=== PATIENT | female | born 1980 | race Caucasian/White ===

== ENCOUNTER 2016-11-22 22:09 | Inpatient (IN) | payer MEDICAID ==
[~2016-11-22 22:09] MED LIST: DIVA500T35 PO; RISP2TAB76 PO; VITAD1000 PO
[2016-11-22] MEDS ORDERED: HALOPERIDOL 5 MG TABLET PO PRN (22:30)
[2016-11-22] MEDS ORDERED: DiphenhydrAMINE HCL 50 MG/ML VIAL IM ONE (22:30)
[2016-11-22] MEDS ORDERED: HALOPERIDOL LACTATE 5 MG/ML VIAL IM ONE (22:30)
[2016-11-22] MEDS ORDERED: LORazepam 2 MG/ML VIAL IM ONE (22:30)
[2016-11-22] MEDS ORDERED: LORazepam 2 MG TABLET PO PRN (22:30)
[2016-11-22] MEDS ORDERED: ZOLPIDEM TARTRATE 10 MG TABLET PO PRN (22:30)
[2016-11-23] MEDS ORDERED: BENZOCAINE/MENTHOL LOZENGE MM PRN (09:15)
[2016-11-23] MEDS ORDERED: MAGNESIUM HYDROXIDE SUSPENSION 30 ML UDCUP PO PRN (09:15)
[2016-11-23] MEDS ORDERED: MAG HYDROX/AL HYDROX/SIMETH ES 30 ML SUSPENSION UDCUP PO PRN (09:15)
[2016-11-23] MEDS ORDERED: LOPERAMIDE HCL 2 MG CAPSULE PO PRN (09:15)
[2016-11-23] MEDS ORDERED: ACETAMINOPHEN 325 MG TABLET PO PRN (09:15)
[2016-11-23] MEDS ORDERED: BACITRACIN 28.4 GM OINTMENT TP PRN (09:15)
[2016-11-23] MEDS ORDERED: PETROLATUM,WHITE 71 GM JELLY TP PRN (09:15)
[2016-11-23] MEDS ORDERED: CloNIDine HCL 0.1 MG TABLET PO PRN (09:15)
[2016-11-23] MEDS ORDERED: ONDANSETRON HCL 4 MG TABLET PO PRN (09:15)
[2016-11-23] MEDS ORDERED: ALBUTEROL SULFATE HFA 90 MCG/PUFF 8 GM INHALER IH PRN (09:15)
[2016-11-23] MEDS ORDERED: LORazepam 2 MG/ML VIAL ONE (10:35)
[2016-11-23] MEDS ORDERED: HALOPERIDOL LACTATE 5 MG/ML VIAL ONE (10:35)
[2016-11-23] MEDS ORDERED: DiphenhydrAMINE HCL 50 MG/ML VIAL ONE (10:35)
[2016-11-23] MEDS: DIVALPROEX SODIUM 500 MG DR TABLET PO SCH ×2 (12:12→16:23)
[2016-11-23] MEDS: IBUPROFEN 600 MG TABLET PO PRN (14:09)
[2016-11-23] MEDS: RisperiDONE 2 MG TABLET PO SCH (20:17)
[2016-11-24 01:27] VITALS: BP 120/67
[2016-11-24] MEDS: CHOLECALCIFEROL (VIT D3) 1,000 UNITS TABLET PO SCH (08:59)
[2016-11-24] MEDS: DIVALPROEX SODIUM 500 MG DR TABLET PO SCH ×2 (08:59→16:14)
[2016-11-24] MEDS: IBUPROFEN 600 MG TABLET PO PRN (10:18)
[2016-11-24 16:26] VITALS: BP 126/87
[2016-11-24] MEDS: RisperiDONE 2 MG TABLET PO SCH (20:16)
[2016-11-25 04:58] VITALS: BP 120/84
[2016-11-25 08:49] VITALS: BP 127/72
[2016-11-25 08:52] LABS: BASOPHILS # (AUTO) 0.02 K/uL (0.00-0.20); BASOPHILS % (AUTO) 0.3 % (0.0-2.0); EOSINOPHILS # (AUTO) 0.25 K/uL (0.00-0.70); EOSINOPHILS % (AUTO) 3.12 % (1.0-6.0); HEMATOCRIT 32.3 % (36-46); HEMOGLOBIN 10.6 g/dL (12.0-16.0); LYMPHOCYTES # (AUTO) 2.4 K/uL (1.0-4.8); LYMPHOCYTES % (AUTO) 29.8 % (22.0-44.0); MEAN CORPUSCULAR HEMOGLOBIN 28.5 pg (26.0-34.0); MEAN CORPUSCULAR HGB CONC 32.9 G/dL (31.0-37.0); MEAN CORPUSCULAR VOLUME 87 fL (80-100); MONOCYTES # (AUTO) 0.6 K/uL (0.1-1.0); NEUTROPHILS # (AUTO) 4.8 K/uL (1.8-7.7); NEUTROPHILS % (AUTO) 59.8 % (40.0-70.0); PLATELET COUNT (AUTO) 331 K/uL (150-450); RED BLOOD CELL COUNT(AUTO) 3.73 MIL/uL (4.00-5.20); RED CELL DISTRIBUTION WIDTH 15.3 % (11.5-14.5)
[2016-11-25 09:20] LABS: ALANINE AMINOTRANSFERASE 33 U/L (12-78); ALBUMIN 3.5 g/dL (3.4-5.0); ANION GAP 9 mmol/L (8-16); ASPARTATE AMINOTRANSFERASE 16 U/L (15-37); BILIRUBIN,TOTAL 0.2 mg/dL (0.1-1.0); CARBON DIOXIDE 27 mmol/L (22-29); CHLORIDE 104 mmol/L (98-107); CHOL/HDL RATIO 2.8 (3.9-5.7); CREATININE 0.59 mg/dL (0.60-1.30); GLOMERULAR FILTR. RATE CALC > 60 mL/min (>60); POTASSIUM 3.6 mmol/L (3.5-5.1); SODIUM SERUM 140 mmol/L (136-145); THYROID STIMULATING HORMONE 2.15 uIU/mL (0.36-3.74); TOTAL PROTEIN, SERUM 7.4 g/dL (6.4-8.2); UREA NITROGEN, BLOOD 7 mg/dL (7-18)
[2016-11-25] MEDS: DIVALPROEX SODIUM 500 MG DR TABLET PO SCH ×2 (09:37→16:28)
[2016-11-25] MEDS: CHOLECALCIFEROL (VIT D3) 1,000 UNITS TABLET PO SCH (09:37)
[2016-11-25 16:10] VITALS: BP 119/70
[2016-11-25] MEDS: RisperiDONE 2 MG TABLET PO SCH (21:01)
[2016-11-26 01:30] VITALS: BP 116/71
[2016-11-26] MEDS: IBUPROFEN 600 MG TABLET PO PRN ×2 (01:34→10:11)
[2016-11-26] MEDS: DIVALPROEX SODIUM 500 MG DR TABLET PO SCH (08:26)
[2016-11-26] MEDS: CHOLECALCIFEROL (VIT D3) 1,000 UNITS TABLET PO SCH (08:26)
[2016-11-26 09:42] VITALS: BP 119/72
[2016-11-26 10:08] VITALS: BP 122/70
== END 2016-11-26 12:46 | disposition home or self-care (01) | DRG 750 ==
LOC: B3A 22:26 → EDSTATUS 22:35 → B3A 11-23 00:27
PROVIDERS: ADMIT Psychiatry & Neurology Psychiatry; ATTEND Psychiatry & Neurology Psychiatry
DX: F25.9 Schizoaffective disorder, unspecified (principal); E55.9 Vitamin D deficiency, unspecified; G47.00 Insomnia, unspecified; K59.00 Constipation, unspecified; Z56.0 Unemployment, unspecified; Z79.899 Other long term (current) drug therapy; Z72.89 Other problems related to lifestyle; Z71.41 Alcohol abuse counseling and surveillance of alcoholic
CPT/HCPCS: 83036; 84439; 84443; J1200; J1630; J2060

== ENCOUNTER 2016-12-19 21:51 | Inpatient (IN) | payer MEDICAID ==
[~2016-12-19] VITALS: Ht 157.5 cm; Wt 82.1 kg
[2016-12-19] MEDS ORDERED: ZOLPIDEM TARTRATE 10 MG TABLET PO PRN (22:30)
[2016-12-19] MEDS ORDERED: HALOPERIDOL 5 MG TABLET PO PRN (22:30)
[2016-12-19 23:21] VITALS: BP 135/92
[2016-12-20 00:51] VITALS: BP 134/76
[2016-12-20] MEDS ORDERED: PNEUMOCOCCAL VACCINE POLYVALENT 0.5 ML VIAL [PPSV23] IM ONE (01:15)
[2016-12-20] MEDS: LORazepam 2 MG TABLET PO PRN (06:34)
[2016-12-20] MEDS ORDERED: BENZOCAINE/MENTHOL LOZENGE MM PRN (08:15)
[2016-12-20] MEDS ORDERED: MAGNESIUM HYDROXIDE SUSPENSION 30 ML UDCUP PO PRN (08:15)
[2016-12-20] MEDS ORDERED: ALBUTEROL SULFATE HFA 90 MCG/PUFF 8 GM INHALER IH PRN (08:15)
[2016-12-20] MEDS ORDERED: BACITRACIN 28.4 GM OINTMENT TP PRN (08:15)
[2016-12-20] MEDS ORDERED: ONDANSETRON HCL 4 MG TABLET PO PRN (08:15)
[2016-12-20] MEDS ORDERED: LOPERAMIDE HCL 2 MG CAPSULE PO PRN (08:15)
[2016-12-20] MEDS ORDERED: PETROLATUM,WHITE 71 GM JELLY TP PRN (08:15)
[2016-12-20] MEDS ORDERED: CloNIDine HCL 0.1 MG TABLET PO PRN (08:15)
[2016-12-20] MEDS ORDERED: MAG HYDROX/AL HYDROX/SIMETH ES 30 ML SUSPENSION UDCUP PO PRN (08:15)
[2016-12-20 08:16] VITALS: BP 135/75
[2016-12-20] MEDS: CHOLECALCIFEROL (VIT D3) 1,000 UNITS TABLET PO SCH (08:47)
[2016-12-20] MEDS: DIVALPROEX SODIUM 500 MG DR TABLET PO SCH ×2 (08:47→16:42)
[2016-12-20 16:05] VITALS: BP 123/78
[2016-12-20] MEDS: IBUPROFEN 600 MG TABLET PO PRN (21:11)
[2016-12-20] MEDS: RisperiDONE 2 MG TABLET PO SCH (21:11)
[2016-12-21 03:45] VITALS: BP 121/78
[2016-12-21] MEDS: ACETAMINOPHEN 325 MG TABLET PO PRN ×2 (03:46→20:37)
[2016-12-21 08:33] VITALS: BP 114/59
[2016-12-21] MEDS: CHOLECALCIFEROL (VIT D3) 1,000 UNITS TABLET PO SCH (08:39)
[2016-12-21] MEDS: DIVALPROEX SODIUM 500 MG DR TABLET PO SCH ×2 (08:39→17:12)
[2016-12-21 16:00] VITALS: BP 140/88
[2016-12-21] MEDS: RisperiDONE 2 MG TABLET PO SCH (20:37)
[2016-12-22 04:27] VITALS: BP 134/92
[2016-12-22] MEDS: ACETAMINOPHEN 325 MG TABLET PO PRN (05:14)
[2016-12-22] MEDS: CHOLECALCIFEROL (VIT D3) 1,000 UNITS TABLET PO SCH (08:03)
[2016-12-22] MEDS: IBUPROFEN 600 MG TABLET PO PRN ×2 (08:03→17:13)
[2016-12-22] MEDS: DIVALPROEX SODIUM 500 MG DR TABLET PO SCH ×2 (08:03→16:38)
[2016-12-22 08:10] VITALS: BP 144/95
[2016-12-22 16:29] VITALS: BP 129/89
[2016-12-22] MEDS: RisperiDONE 2 MG TABLET PO SCH (20:18)
[2016-12-23 00:22] VITALS: BP 127/66
[2016-12-23 08:00] VITALS: BP 135/96
[2016-12-23] MEDS: DIVALPROEX SODIUM 500 MG DR TABLET PO SCH ×2 (09:00→16:57)
[2016-12-23] MEDS: CHOLECALCIFEROL (VIT D3) 1,000 UNITS TABLET PO SCH (09:00)
[2016-12-23 09:27] LABS: CHOL/HDL RATIO 2.9 (3.9-5.7); VALPROIC ACID 80 mcg/mL (50-100)
[2016-12-23 09:28] LABS: HEMOGLOBIN A1C 6.1 % (4.5-6.2)
[2016-12-23 09:32] LABS: BASOPHILS # (AUTO) 0.02 K/uL (0.00-0.20); BASOPHILS % (AUTO) 0.2 % (0.0-2.0); EOSINOPHILS # (AUTO) 0.16 K/uL (0.00-0.70); EOSINOPHILS % (AUTO) 2.11 % (1.0-6.0); HEMATOCRIT 31.4 % (36-46); HEMOGLOBIN 10.5 g/dL (12.0-16.0); LYMPHOCYTES # (AUTO) 2.3 K/uL (1.0-4.8); MEAN CORPUSCULAR HEMOGLOBIN 28.9 pg (26.0-34.0); MEAN CORPUSCULAR HGB CONC 33.4 G/dL (31.0-37.0); MEAN CORPUSCULAR VOLUME 86 fL (80-100); MONOCYTES # (AUTO) 0.7 K/uL (0.1-1.0); MONOCYTES % (AUTO) 8.5 % (2.0-9.0); NEUTROPHILS # (AUTO) 4.7 K/uL (1.8-7.7); NEUTROPHILS % (AUTO) 60.2 % (40.0-70.0); PLATELET COUNT (AUTO) 327 K/uL (150-450); RED BLOOD CELL COUNT(AUTO) 3.63 MIL/uL (4.00-5.20); RED CELL DISTRIBUTION WIDTH 14.4 % (11.5-14.5); WHITE BLOOD COUNT (AUTO) 7.8 K/uL (4.5-11.0)
[2016-12-23] MEDS: RisperiDONE 2 MG TABLET PO SCH (20:08)
[2016-12-23] MEDS: IBUPROFEN 600 MG TABLET PO PRN (21:52)
[2016-12-24 08:44] VITALS: BP 157/86
[2016-12-24] MEDS: DIVALPROEX SODIUM 500 MG DR TABLET PO SCH ×2 (08:49→17:05)
[2016-12-24] MEDS: CHOLECALCIFEROL (VIT D3) 1,000 UNITS TABLET PO SCH (08:49)
[2016-12-24] MEDS: ACETAMINOPHEN 325 MG TABLET PO PRN (09:32)
[2016-12-24 09:33] VITALS: BP 133/86
[2016-12-24 13:19] VITALS: BP 144/86
[2016-12-24] MEDS: IBUPROFEN 600 MG TABLET PO PRN ×2 (13:19→19:49)
[2016-12-24 14:30] VITALS: BP 140/80
[2016-12-24] MEDS: RisperiDONE 2 MG TABLET PO SCH (21:00)
[2016-12-25 01:55] VITALS: BP 129/82
[2016-12-25] MEDS: IBUPROFEN 600 MG TABLET PO PRN ×3 (02:00→16:42)
[2016-12-25] MEDS: LORazepam 2 MG TABLET PO PRN (08:08)
[2016-12-25] MEDS: DIVALPROEX SODIUM 500 MG DR TABLET PO SCH ×2 (08:08→16:13)
[2016-12-25] MEDS: CHOLECALCIFEROL (VIT D3) 1,000 UNITS TABLET PO SCH (08:08)
[2016-12-25 09:00] VITALS: BP 152/62
[2016-12-25] MEDS ORDERED: BENZOCAINE 10% 7 GM GEL TP PRN (09:15)
[2016-12-25] MEDS: ACETAMINOPHEN 325 MG TABLET PO PRN (09:37)
[2016-12-25 09:45] VITALS: BP 151/70
[2016-12-25 10:15] VITALS: BP 142/64
[2016-12-25 14:01] VITALS: BP 155/95
[2016-12-25 16:30] VITALS: BP 140/80
[2016-12-25] MEDS: RisperiDONE 2 MG TABLET PO SCH (20:13)
[2016-12-26 03:34] VITALS: BP 136/77
[2016-12-26 08:10] VITALS: BP 132/80
[2016-12-26] MEDS: CHOLECALCIFEROL (VIT D3) 1,000 UNITS TABLET PO SCH ×2 (08:13→09:00)
[2016-12-26] MEDS: DIVALPROEX SODIUM 500 MG DR TABLET PO SCH ×2 (08:13→16:54)
[2016-12-26] MEDS: IBUPROFEN 600 MG TABLET PO PRN ×2 (13:57→20:10)
[2016-12-26] MEDS: RisperiDONE 2 MG TABLET PO SCH (20:55)
[2016-12-27] MEDS: ACETAMINOPHEN 325 MG TABLET PO PRN (00:21)
[2016-12-27] MEDS: LORazepam 2 MG TABLET PO PRN (00:44)
[2016-12-27] MEDS: IBUPROFEN 600 MG TABLET PO PRN (07:19)
[2016-12-27] MEDS: DIVALPROEX SODIUM 500 MG DR TABLET PO SCH ×2 (08:26→16:17)
[2016-12-27] MEDS: CHOLECALCIFEROL (VIT D3) 1,000 UNITS TABLET PO SCH (08:27)
[2016-12-27 09:00] VITALS: BP 126/80
[2016-12-27 16:30] VITALS: BP 122/71
[2016-12-27] MEDS: RisperiDONE 2 MG TABLET PO SCH (20:40)
[2016-12-28 03:40] VITALS: BP 117/74
[2016-12-28] MEDS: ACETAMINOPHEN 325 MG TABLET PO PRN ×2 (03:40→16:41)
[2016-12-28 08:34] VITALS: BP 140/79
[2016-12-28] MEDS: CHOLECALCIFEROL (VIT D3) 1,000 UNITS TABLET PO SCH (09:01)
[2016-12-28] MEDS: DIVALPROEX SODIUM 500 MG DR TABLET PO SCH ×2 (09:01→16:41)
[2016-12-28 12:12] VITALS: BP 132/78
[2016-12-28] MEDS: IBUPROFEN 600 MG TABLET PO PRN ×2 (12:12→20:29)
[2016-12-28] MEDS: RisperiDONE 2 MG TABLET PO SCH (20:29)
[2016-12-29 01:21] VITALS: BP 110/78
[2016-12-29] MEDS: ACETAMINOPHEN 325 MG TABLET PO PRN (02:03)
[2016-12-29] MEDS: DIVALPROEX SODIUM 500 MG DR TABLET PO SCH ×2 (08:45→16:25)
[2016-12-29] MEDS: CHOLECALCIFEROL (VIT D3) 1,000 UNITS TABLET PO SCH (08:45)
[2016-12-29 08:50] VITALS: BP 100/63
[2016-12-29] MEDS: IBUPROFEN 600 MG TABLET PO PRN (13:48)
[2016-12-29 16:35] VITALS: BP 110/67
[2016-12-29] MEDS: RisperiDONE 2 MG TABLET PO SCH (20:26)
[2016-12-30 03:16] VITALS: BP 109/77
[2016-12-30] MEDS: IBUPROFEN 600 MG TABLET PO PRN (03:33)
[2016-12-30] MEDS ORDERED: FERROUS SULFATE 325 MG EC TABLET PO SCH (07:00)
[2016-12-30] MEDS: CHOLECALCIFEROL (VIT D3) 1,000 UNITS TABLET PO SCH (08:46)
[2016-12-30] MEDS: DIVALPROEX SODIUM 500 MG DR TABLET PO SCH (08:47)
[2016-12-30] MEDS ORDERED: FERR-89 PO (09:16)
[2016-12-30 09:19] VITALS: BP 117/55
[2016-12-30 16:00] VITALS: BP 132/68
== END 2016-12-30 16:55 | disposition home or self-care (01) | DRG 750 ==
LOC: B3A 23:30
PROVIDERS: ADMIT Psychiatry & Neurology Psychiatry; ATTEND Psychiatry & Neurology Psychiatry
DX: F25.9 Schizoaffective disorder, unspecified (principal); F22 Delusional disorders; E55.9 Vitamin D deficiency, unspecified; E66.9 Obesity, unspecified; F31.9 Bipolar disorder, unspecified; F41.9 Anxiety disorder, unspecified; G47.00 Insomnia, unspecified; K08.89 Other specified disorders of teeth and supporting structures; K59.00 Constipation, unspecified; Z91.19 Patient's noncompliance with other medical treatment and regimen; D64.9 Anemia, unspecified; Z28.21 Immunization not carried out because of patient refusal
CPT/HCPCS: 83036; 84439; 87081; 90471; 99285

== ENCOUNTER 2018-07-10 03:58 | Inpatient (IN) | payer MEDICAID, OTHER ==
[~2018-07-10] VITALS: Ht 157.5 cm; Wt 81.6 kg
[~2018-07-10 03:58] MED LIST changes: +DIVA-78 PO; -DIVA500T35 PO; +FERR-89 PO
[2018-07-10 06:46] LABS: BASOPHILS % (AUTO) 0.7 % (0.0-2.0); EOSINOPHILS % (AUTO) 0.4 % (1.0-6.0); HEMATOCRIT 32.2 % (36-46); HEMOGLOBIN 10.7 g/dL (12.0-16.0); LYMPHOCYTES # (AUTO) 2.4 K/uL (1.0-4.8); LYMPHOCYTES % (AUTO) 22.5 % (22.0-44.0); MEAN CORPUSCULAR HEMOGLOBIN 26.2 pg (26.0-34.0); MEAN CORPUSCULAR HGB CONC 33.1 G/dL (31.0-37.0); MEAN CORPUSCULAR VOLUME 79 fL (80-100); MONOCYTES # (AUTO) 0.8 K/uL (0.1-1.0); MONOCYTES % (AUTO) 7.5 % (2.0-9.0); NEUTROPHILS # (AUTO) 7.4 K/uL (1.8-7.7); NEUTROPHILS % (AUTO) 68.9 % (40.0-70.0); PLATELET COUNT (AUTO) 443 K/uL (150-450); RED BLOOD CELL COUNT(AUTO) 4.08 MIL/uL (4.00-5.20); RED CELL DISTRIBUTION WIDTH 17.2 % (11.5-14.5)
[2018-07-10 07:10] LABS: ANION GAP 14 mmol/L (8-16); CALCIUM, TOTAL 9.7 mg/dL (8.8-10.5); CARBON DIOXIDE 24 mmol/L (22-29); CHLORIDE 103 mmol/L (98-107); CREATININE 0.64 mg/dL (0.60-1.30); GLOMERULAR FILTR. RATE CALC > 60 mL/min (>60); GLUCOSE,RANDOM 103 mg/dL (70-110); POTASSIUM 3.4 mmol/L (3.5-5.1); SODIUM SERUM 141 mmol/L (136-145); UREA NITROGEN, BLOOD 9 mg/dL (7-18)
[2018-07-10 07:22] LABS: ALANINE AMINOTRANSFERASE 30 U/L (12-78); ALBUMIN 4.4 g/dL (3.4-5.0); ALKALINE PHOSPHATASE 67 U/L (46-116); ASPARTATE AMINOTRANSFERASE 59 U/L (15-37); BILIRUBIN,TOTAL 0.2 mg/dL (0.1-1.0); HCG,QUANTITATIVE 1 mIU/mL (0-6); TOTAL PROTEIN, SERUM 8.7 g/dL (6.4-8.2)
[2018-07-10 07:24] LABS: AMPHET/METH SCREEN,URINE NEGATIVE (NEGATIVE); BARBITURATE SCREEN, URINE NEGATIVE (NEGATIVE); BENZODIAZEPINES SCREEN,URINE NEGATIVE (NEGATIVE); CANNABINOID SCREEN,URINE NEGATIVE (NEGATIVE); COCAINE SCREEN,URINE NEGATIVE (NEGATIVE); METHADONE SCREEN, URINE NEGATIVE (NEGATIVE); OPIATE SCREEN,URINE NEGATIVE (NEGATIVE)
[2018-07-10 07:25] LABS: PHENCYCLIDINE SCREEN,URINE NEGATIVE (NEGATIVE)
[2018-07-10] MEDS ORDERED: DiphenhydrAMINE HCL 25 MG CAPSULE PO ONE (08:45)
[2018-07-10] MEDS ORDERED: LORazepam 1 MG TABLET PO ONE (08:45)
[2018-07-10] MEDS ORDERED: HALOPERIDOL 5 MG TABLET PO ONE (08:45)
[2018-07-10] MEDS ORDERED: LORazepam 2 MG TABLET PO PRN (09:30)
[2018-07-10] MEDS ORDERED: HALOPERIDOL 5 MG TABLET PO PRN (09:30)
[2018-07-10] MEDS ORDERED: ZOLPIDEM TARTRATE 10 MG TABLET PO PRN (09:30)
[2018-07-10] MEDS ORDERED: ALBUTEROL SULFATE HFA 90 MCG/PUFF 8 GM INHALER IH PRN (13:30)
[2018-07-10] MEDS ORDERED: ONDANSETRON HCL 4 MG TABLET PO PRN (13:30)
[2018-07-10] MEDS ORDERED: MAGNESIUM HYDROXIDE SUSPENSION 30 ML UDCUP PO PRN (13:30)
[2018-07-10] MEDS ORDERED: LOPERAMIDE HCL 2 MG CAPSULE PO PRN (13:30)
[2018-07-10] MEDS ORDERED: POTASSIUM CHLORIDE 20 MEQ ER TABLET PO ONE (13:30)
[2018-07-10] MEDS ORDERED: BACITRACIN 28.4 GM OINTMENT TP PRN (13:30)
[2018-07-10] MEDS ORDERED: BENZOCAINE/MENTHOL LOZENGE MM PRN (13:30)
[2018-07-10] MEDS ORDERED: CloNIDine HCL 0.1 MG TABLET PO PRN (13:30)
[2018-07-10] MEDS ORDERED: MAG HYDROX/AL HYDROX/SIMETH ES 30 ML SUSPENSION UDCUP PO PRN (13:30)
[2018-07-10] MEDS ORDERED: PETROLATUM,WHITE 28 GM JELLY TP PRN (13:30)
[2018-07-10] MEDS ORDERED: ACETAMINOPHEN 325 MG TABLET PO PRN (13:30)
[2018-07-10 16:15] VITALS: BP 133/74
[2018-07-10] MEDS: DIVALPROEX SODIUM 500 MG DR TABLET PO SCH (17:22)
[2018-07-10] MEDS ORDERED: PNEUMOCOCCAL VACCINE POLYVALENT 0.5 ML VIAL [PPSV23] IM ONE (18:00)
[2018-07-10] MEDS: RisperiDONE 2 MG TABLET PO SCH (20:55)
[2018-07-11 03:02] VITALS: BP 128/71
[2018-07-11 03:55] VITALS: BP 141/86
[2018-07-11] MEDS: IBUPROFEN 600 MG TABLET PO PRN (03:59)
[2018-07-11 08:10] VITALS: BP 161/95
[2018-07-11 08:33] LABS: ANION GAP 12 mmol/L (8-16); CALCIUM, TOTAL 9.8 mg/dL (8.8-10.5); CARBON DIOXIDE 26 mmol/L (22-29); CHLORIDE 100 mmol/L (98-107); CREATININE 0.61 mg/dL (0.60-1.30); GLOMERULAR FILTR. RATE CALC > 60 mL/min (>60); GLUCOSE,RANDOM 102 mg/dL (70-110); POTASSIUM 4.2 mmol/L (3.5-5.1); SODIUM SERUM 138 mmol/L (136-145); UREA NITROGEN, BLOOD 11 mg/dL (7-18)
[2018-07-11] MEDS: DIVALPROEX SODIUM 500 MG DR TABLET PO SCH ×2 (08:39→16:32)
[2018-07-11] MEDS ORDERED: DOCUSATE SODIUM 100 MG CAPSULE PO SCH (09:00)
[2018-07-11] MEDS ORDERED: OMEPRAZOLE 20 MG CAPSULE PO SCH (09:00)
[2018-07-11 09:15] VITALS: BP 116/70
[2018-07-11 13:32] VITALS: BP 134/78
[2018-07-11] MEDS: RisperiDONE 2 MG TABLET PO SCH (20:41)
[2018-07-12 02:10] VITALS: BP 113/64
[2018-07-12] MEDS: IBUPROFEN 600 MG TABLET PO PRN (04:18)
[2018-07-12 08:20] VITALS: BP 145/92
[2018-07-12] MEDS: DIVALPROEX SODIUM 500 MG DR TABLET PO SCH ×2 (08:59→18:17)
[2018-07-12] MEDS: CHOLECALCIFEROL (VIT D3) 1,000 UNITS TABLET PO SCH (08:59)
[2018-07-12] MEDS ORDERED: OMEPRAZOLE 20 MG CAPSULE PO PRN (09:15)
[2018-07-12] MEDS ORDERED: DOCUSATE SODIUM 100 MG CAPSULE PO PRN (09:15)
[2018-07-12] MEDS ORDERED: HALOPERIDOL LACTATE 5 MG/ML VIAL IM ONE (12:30)
[2018-07-12] MEDS ORDERED: LORazepam 2 MG/ML VIAL ONE (12:30)
[2018-07-12] MEDS ORDERED: HALOPERIDOL LACTATE 5 MG/ML VIAL ONE (12:30)
[2018-07-12] MEDS ORDERED: DiphenhydrAMINE HCL 50 MG/ML VIAL IM ONE (12:30)
[2018-07-12] MEDS ORDERED: LORazepam 2 MG/ML VIAL IM ONE (12:30)
[2018-07-12] MEDS ORDERED: DiphenhydrAMINE HCL 50 MG/ML VIAL ONE (12:31)
[2018-07-12] MEDS ORDERED: HALOPERIDOL 5 MG TABLET PO PRN (12:45)
[2018-07-12] MEDS ORDERED: ZOLPIDEM TARTRATE 10 MG TABLET PO PRN (12:45)
[2018-07-12] MEDS ORDERED: LORazepam 2 MG TABLET PO PRN (12:45)
[2018-07-12 16:56] VITALS: BP 126/89
[2018-07-12] MEDS: RisperiDONE 2 MG TABLET PO SCH (20:07)
[2018-07-13 02:52] VITALS: BP 122/74
[2018-07-13 08:24] VITALS: BP 121/69
[2018-07-13] MEDS: CHOLECALCIFEROL (VIT D3) 1,000 UNITS TABLET PO SCH (08:26)
[2018-07-13] MEDS: DIVALPROEX SODIUM 500 MG DR TABLET PO SCH ×2 (08:26→16:41)
[2018-07-13 16:43] VITALS: BP 136/85
[2018-07-13 20:08] VITALS: BP 128/78
[2018-07-13] MEDS: IBUPROFEN 600 MG TABLET PO PRN (20:08)
[2018-07-13] MEDS: RisperiDONE 2 MG TABLET PO SCH (20:21)
[2018-07-14 01:51] VITALS: BP 102/82
[2018-07-14 08:21] VITALS: BP 144/73
[2018-07-14] MEDS: DIVALPROEX SODIUM 500 MG DR TABLET PO SCH ×2 (08:22→17:36)
[2018-07-14] MEDS: CHOLECALCIFEROL (VIT D3) 1,000 UNITS TABLET PO SCH (08:22)
[2018-07-14 16:07] VITALS: BP 115/65
[2018-07-14] MEDS: RisperiDONE 2 MG TABLET PO SCH (20:45)
[2018-07-15 04:33] VITALS: BP 120/75
[2018-07-15 08:26] VITALS: BP 130/81
[2018-07-15] MEDS: CHOLECALCIFEROL (VIT D3) 1,000 UNITS TABLET PO SCH (08:31)
[2018-07-15] MEDS: DIVALPROEX SODIUM 500 MG DR TABLET PO SCH ×2 (08:31→17:22)
[2018-07-15 16:41] VITALS: BP 115/74
[2018-07-15] MEDS: RisperiDONE 2 MG TABLET PO SCH (21:38)
[2018-07-16 00:10] VITALS: BP 124/81
[2018-07-16] MEDS: IBUPROFEN 600 MG TABLET PO PRN (00:19)
[2018-07-16 08:38] VITALS: BP 128/107
[2018-07-16] MEDS: CHOLECALCIFEROL (VIT D3) 1,000 UNITS TABLET PO SCH (09:13)
[2018-07-16] MEDS: DIVALPROEX SODIUM 500 MG DR TABLET PO SCH ×2 (09:14→16:33)
== END 2018-07-16 17:42 | disposition home or self-care (01) | DRG 750 ==
LOC: EMS 03:58 → B3A 10:24
PROVIDERS: ADMIT Psychiatry & Neurology Psychiatry; ATTEND Psychiatry & Neurology Psychiatry
DX: F25.9 Schizoaffective disorder, unspecified (principal); D50.9 Iron deficiency anemia, unspecified; E55.9 Vitamin D deficiency, unspecified; E66.9 Obesity, unspecified; E87.6 Hypokalemia; F31.9 Bipolar disorder, unspecified; F41.9 Anxiety disorder, unspecified; G47.00 Insomnia, unspecified; K59.00 Constipation, unspecified
CPT/HCPCS: G0480; J1200; J1630; J2060; Q0162

== ENCOUNTER 2019-02-26 07:11 | Inpatient (IN) | payer MEDICAID, OTHER ==
[~2019-02-26] VITALS: Ht 157.5 cm; Wt 81.0 kg
[~2019-02-26 07:11] MED LIST changes: +CHOL100018 PO; -FERR-89 PO; -VITAD1000 PO
[2019-02-26] MEDS ORDERED: DiphenhydrAMINE HCL 50 MG/ML VIAL IM ONE (07:30)
[2019-02-26] MEDS ORDERED: HALOPERIDOL LACTATE 5 MG/ML VIAL IM ONE (07:30)
[2019-02-26] MEDS ORDERED: LORazepam 2 MG/ML VIAL IM ONE (07:30)
[2019-02-26] MEDS ORDERED: MIDAZOLAM HCL 2 MG/2 ML VIAL IM ONE (07:45)
[2019-02-26 08:01] LABS: GLUCOSE,POINT OF CARE 126 MG/DL (70-110)
[2019-02-26] MEDS ORDERED: HALOPERIDOL 5 MG TABLET PO PRN (10:30)
[2019-02-26] MEDS ORDERED: ZOLPIDEM TARTRATE 10 MG TABLET PO PRN (10:30)
[2019-02-26] MEDS ORDERED: LORazepam 2 MG TABLET PO PRN (10:30)
[2019-02-26 11:48] LABS: BASOPHILS % (AUTO) 0.3 % (0.0-2.0); EOSINOPHILS % (AUTO) 1.2 % (1.0-6.0); HEMATOCRIT 33.7 % (36-46); HEMOGLOBIN 10.8 g/dL (12.0-16.0); LYMPHOCYTES # (AUTO) 2.3 K/uL (1.0-4.8); LYMPHOCYTES % (AUTO) 21.7 % (22.0-44.0); MEAN CORPUSCULAR HEMOGLOBIN 26.9 pg (26.0-34.0); MEAN CORPUSCULAR HGB CONC 32.1 G/dL (31.0-37.0); MEAN CORPUSCULAR VOLUME 84 fL (80-100); MONOCYTES # (AUTO) 0.8 K/uL (0.1-1.0); MONOCYTES % (AUTO) 7.4 % (2.0-9.0); NEUTROPHILS # (AUTO) 7.4 K/uL (1.8-7.7); NEUTROPHILS % (AUTO) 69.4 % (40.0-70.0); PLATELET COUNT (AUTO) 304 K/uL (150-450); RED BLOOD CELL COUNT(AUTO) 4.02 MIL/uL (4.00-5.20); RED CELL DISTRIBUTION WIDTH 15.7 % (11.5-14.5)
[2019-02-26 12:08] LABS: ANION GAP 10 mmol/L (8-16); CALCIUM, TOTAL 8.6 mg/dL (8.8-10.5); CARBON DIOXIDE 26 mmol/L (22-29); CHLORIDE 104 mmol/L (98-107); CREATININE 0.47 mg/dL (0.60-1.30); GLOMERULAR FILTR. RATE CALC > 60 mL/min (>60); GLUCOSE,RANDOM 92 mg/dL (70-110); POTASSIUM 3.4 mmol/L (3.5-5.1); SODIUM SERUM 140 mmol/L (136-145); UREA NITROGEN, BLOOD 15 mg/dL (7-18)
[2019-02-26 12:21] LABS: ALANINE AMINOTRANSFERASE 24 U/L (12-78); ALBUMIN 3.5 g/dL (3.4-5.0); ALKALINE PHOSPHATASE 56 U/L (46-116); ASPARTATE AMINOTRANSFERASE 21 U/L (15-37); BILIRUBIN,TOTAL 0.3 mg/dL (0.1-1.0); HCG,QUANTITATIVE < 1 mIU/mL (0-6); TOTAL PROTEIN, SERUM 7.3 g/dL (6.4-8.2)
[2019-02-26] MEDS ORDERED: PETROLATUM,WHITE 28 GM JELLY TP PRN (14:00)
[2019-02-26] MEDS ORDERED: LOPERAMIDE HCL 2 MG CAPSULE PO PRN (14:00)
[2019-02-26] MEDS ORDERED: MAGNESIUM HYDROXIDE SUSPENSION 30 ML UDCUP PO PRN (14:00)
[2019-02-26] MEDS ORDERED: BACITRACIN 28.4 GM OINTMENT TP PRN (14:00)
[2019-02-26] MEDS ORDERED: ONDANSETRON HCL 4 MG TABLET PO PRN (14:00)
[2019-02-26] MEDS ORDERED: ACETAMINOPHEN 325 MG TABLET PO PRN (14:00)
[2019-02-26] MEDS ORDERED: CloNIDine HCL 0.1 MG TABLET PO PRN (14:00)
[2019-02-26] MEDS ORDERED: ALBUTEROL SULFATE HFA 90 MCG/PUFF 8 GM INHALER IH PRN (14:00)
[2019-02-26] MEDS ORDERED: MAG HYDROX/AL HYDROX/SIMETH ES 30 ML SUSPENSION UDCUP PO PRN (14:00)
[2019-02-26 16:49] VITALS: BP 113/60
[2019-02-27 01:23] VITALS: BP 109/63
[2019-02-27 08:07] VITALS: BP 116/71
[2019-02-27] MEDS ORDERED: POTASSIUM CHLORIDE 10 MEQ ER TABLET PO ONE (08:30)
[2019-02-27] MEDS ORDERED: OMEPRAZOLE 20 MG CAPSULE PO SCH (09:00)
[2019-02-27] MEDS ORDERED: DOCUSATE SODIUM 100 MG CAPSULE PO SCH (09:00)
[2019-02-27 15:52] VITALS: BP 129/99
[2019-02-27] MEDS: DIVALPROEX SODIUM 500 MG DR TABLET PO SCH (17:10)
[2019-02-27] MEDS: RisperiDONE 2 MG TABLET PO SCH (20:21)
[2019-02-28 07:59] LABS: BASOPHILS % (AUTO) 0.4 % (0.0-2.0); EOSINOPHILS % (AUTO) 2.8 % (1.0-6.0); HEMATOCRIT 32.2 % (36-46); HEMOGLOBIN 10.5 g/dL (12.0-16.0); LYMPHOCYTES # (AUTO) 2.4 K/uL (1.0-4.8); LYMPHOCYTES % (AUTO) 24.6 % (22.0-44.0); MEAN CORPUSCULAR HEMOGLOBIN 27.1 pg (26.0-34.0); MEAN CORPUSCULAR HGB CONC 32.5 G/dL (31.0-37.0); MEAN CORPUSCULAR VOLUME 84 fL (80-100); MONOCYTES # (AUTO) 0.6 K/uL (0.1-1.0); MONOCYTES % (AUTO) 6.5 % (2.0-9.0); NEUTROPHILS # (AUTO) 6.5 K/uL (1.8-7.7); NEUTROPHILS % (AUTO) 65.7 % (40.0-70.0); PLATELET COUNT (AUTO) 372 K/uL (150-450); RED BLOOD CELL COUNT(AUTO) 3.86 MIL/uL (4.00-5.20)
[2019-02-28 08:25] VITALS: BP 118/69
[2019-02-28 08:31] LABS: ALANINE AMINOTRANSFERASE 29 U/L (12-78); ALBUMIN 3.1 g/dL (3.4-5.0); ALKALINE PHOSPHATASE 58 U/L (46-116); ANION GAP 7 mmol/L (8-16); ASPARTATE AMINOTRANSFERASE 14 U/L (15-37); BILIRUBIN,TOTAL 0.1 mg/dL (0.1-1.0); CALCIUM, TOTAL 8.8 mg/dL (8.8-10.5); CARBON DIOXIDE 27 mmol/L (22-29); CHLORIDE 104 mmol/L (98-107); CHOL/HDL RATIO 3.2 (3.9-5.7); CHOLESTEROL 123 mg/dL (131-200); CREATININE 0.54 mg/dL (0.60-1.30); FREE T4 (FREE THYROXINE) 1.14 ng/dL (0.76-1.46); GLOMERULAR FILTR. RATE CALC > 60 mL/min (>60); GLUCOSE,RANDOM 103 mg/dL (70-110); HCG,QUANTITATIVE < 1 mIU/mL (0-6); HDL CHOLESTEROL 39 mg/dL (40-60); LDL CHOL (CALC.) 56 mg/dL (0-130); SODIUM SERUM 138 mmol/L (136-145); THYROID STIMULATING HORMONE 1.78 uIU/mL (0.36-3.74); TOTAL PROTEIN, SERUM 7.2 g/dL (6.4-8.2); TRIGLYCERIDES 141 mg/dL (15-150); UREA NITROGEN, BLOOD 17 mg/dL (7-18)
[2019-02-28] MEDS: DIVALPROEX SODIUM 500 MG DR TABLET PO SCH ×2 (09:27→16:12)
[2019-02-28] MEDS: FERROUS SULFATE 325 MG EC TABLET PO SCH ×2 (12:40→16:12)
[2019-02-28] MEDS: BENZOCAINE/MENTHOL LOZENGE MM PRN ×2 (13:48→20:34)
[2019-02-28 16:01] VITALS: BP 136/93
[2019-02-28 17:01] VITALS: BP 132/30
[2019-02-28] MEDS: IBUPROFEN 600 MG TABLET PO PRN (17:01)
[2019-02-28 18:26] VITALS: BP 129/79
[2019-02-28] MEDS: RisperiDONE 2 MG TABLET PO SCH (20:31)
[2019-03-01 01:27] VITALS: BP 102/85
[2019-03-01] MEDS: IBUPROFEN 600 MG TABLET PO PRN (02:02)
[2019-03-01] MEDS: BENZOCAINE/MENTHOL LOZENGE MM PRN ×2 (02:02→08:59)
[2019-03-01] MEDS: MULTIVITAMINS WITH IRON TABLET PO SCH (06:31)
[2019-03-01] MEDS: FERROUS SULFATE 325 MG EC TABLET PO SCH ×3 (06:31→16:29)
[2019-03-01] MEDS: DIVALPROEX SODIUM 500 MG DR TABLET PO SCH ×2 (08:08→16:29)
[2019-03-01 08:36] VITALS: BP 113/75
[2019-03-01 16:02] VITALS: BP 117/74
[2019-03-01] MEDS: RisperiDONE 2 MG TABLET PO SCH (20:51)
[2019-03-02] VITALS: BP 109/69
[2019-03-02] MEDS: MULTIVITAMINS WITH IRON TABLET PO SCH (06:32)
[2019-03-02] MEDS: FERROUS SULFATE 325 MG EC TABLET PO SCH ×3 (06:32→16:20)
[2019-03-02 08:47] VITALS: BP 108/60
[2019-03-02] MEDS: DIVALPROEX SODIUM 500 MG DR TABLET PO SCH ×2 (08:52→16:20)
[2019-03-02] MEDS: BENZOCAINE/MENTHOL LOZENGE MM PRN ×2 (08:59→15:14)
[2019-03-02 16:14] VITALS: BP 125/91
[2019-03-02] MEDS: RisperiDONE 2 MG TABLET PO SCH (20:02)
[2019-03-03 03:53] VITALS: BP 115/73
[2019-03-03] MEDS: FERROUS SULFATE 325 MG EC TABLET PO SCH ×3 (06:35→16:01)
[2019-03-03] MEDS: MULTIVITAMINS WITH IRON TABLET PO SCH (06:35)
[2019-03-03 08:06] VITALS: BP 117/76
[2019-03-03] MEDS: DIVALPROEX SODIUM 500 MG DR TABLET PO SCH ×2 (08:06→16:01)
[2019-03-03] MEDS: BENZOCAINE/MENTHOL LOZENGE MM PRN ×2 (08:20→16:01)
[2019-03-03] MEDS: GuaiFENesin/D-METHORPHAN [SUGAR-FREE] 200-20MG/10 ML SYRUP UDCUP PO PRN (10:41)
[2019-03-03 16:27] VITALS: BP 137/98
[2019-03-03] MEDS: RisperiDONE 2 MG TABLET PO SCH (20:16)
[2019-03-04 04:37] VITALS: BP 118/77
[2019-03-04] MEDS: FERROUS SULFATE 325 MG EC TABLET PO SCH ×2 (07:01→12:28)
[2019-03-04] MEDS: MULTIVITAMINS WITH IRON TABLET PO SCH (07:01)
[2019-03-04 08:17] VITALS: BP 115/78
[2019-03-04] MEDS: GuaiFENesin/D-METHORPHAN [SUGAR-FREE] 200-20MG/10 ML SYRUP UDCUP PO PRN (08:18)
[2019-03-04] MEDS: DIVALPROEX SODIUM 500 MG DR TABLET PO SCH (08:18)
[2019-03-04] MEDS ORDERED: FERR-89 PO (12:19)
[2019-03-04] MEDS: BENZOCAINE/MENTHOL LOZENGE MM PRN (12:26)
== END 2019-03-04 13:30 | disposition home or self-care (01) | DRG 753 ==
LOC: EMS 07:13 → B3A 11:51
PROVIDERS: ADMIT Psychiatry & Neurology Psychiatry; ATTEND Psychiatry & Neurology Psychiatry
DX: F31.9 Bipolar disorder, unspecified (principal); E55.9 Vitamin D deficiency, unspecified; E66.9 Obesity, unspecified; E87.6 Hypokalemia; F41.9 Anxiety disorder, unspecified; K59.00 Constipation, unspecified; F12.90 Cannabis use, unspecified, uncomplicated; G47.00 Insomnia, unspecified; Z68.37 Body mass index [BMI] 37.0-37.9, adult; Z79.899 Other long term (current) drug therapy
CPT/HCPCS: 83036; 84439; 84443; G0480; J1200; J1630; J2060; J2250